=== PATIENT | female | born 1935 | race African-American/Black ===

== ENCOUNTER 2020-07-03 14:39 | Inpatient (IN) | payer OTHER, MEDICAID ==
[~2020-07-03] VITALS: Ht 162.6 cm; Wt 59.9 kg
[2020-07-03] MEDS ORDERED: SODIUM CHLORIDE 0.9% 1,000 ML IV ONE (15:19)
[2020-07-03] MEDS ORDERED: LORAZEPAM 2MG/ML CPJ IV ONE (15:30)
[2020-07-03 15:33] LABS: BASOPHILS % 0.5 % (0.0-2.0); HEMATOCRIT. 41.7 % (36.0-48.0); HEMOGLOBIN. 14.2 g/dL (12.0-16.0); LYMPHOCYTES % 15.2 % (20.0-50.0); MEAN CORPUSCULAR HEMOGLOBIN 32.1 pg (28.0-32.0); NEUTROPHILS % 79.3 % (40.0-76.0); PLATELET 201 x1000/uL (130-400); RED BLOOD CELL COUNT 4.44 mill/uL (4.2-5.4); RED CELL DISTRIBUTION WIDTH 12.7 % (11.6-14.6)
[2020-07-03 15:39] LABS: CHLORIDE 100 mEq/L (98-107)
[2020-07-03 15:44] LABS: ETHANOL BLOOD < 10 mg/dL
[2020-07-03 15:47] LABS: PARTIAL THROMBOPLASTIN TIME 24.6 sec (23.4-31.0); PROTHROMBIN TIME 10.8 sec (9.6-11.0)
[2020-07-03 16:17] LABS: CLARITY URINE CLEAR (CLEAR); COLOR URINE YELLOW (YELLOW); KETONES URINE 3+ (NEGATIVE); LEUKOCYTE ESTERASE URINE NEGATIVE (NEGATIVE); NITRITE URINE NEGATIVE (NEGATIVE); OCCULT BLOOD URINE 2+ (NEGATIVE); PROTEIN URINE TRACE (NEGATIVE); UROBILINOGEN URINE 0.2 E.U./dL (0.2-1.0)
[2020-07-03 16:45] LABS: *AMPHETAMINES SCREEN URINE NEGATIVE (NEGATIVE); *BARBITURATES SCREEN URINE NEGATIVE (NEGATIVE); *BENZODIAZEPINES SCREEN URINE NEGATIVE (NEGATIVE); *COCAINE SCREEN URINE NEGATIVE (NEGATIVE); METHADONE URINE SCREEN NEGATIVE (NEGATIVE); OPIATES URINE SCREEN NEGATIVE (NEGATIVE)
[2020-07-03 16:46] LABS: CANNABINOID URINE SCREEN NEGATIVE (NEGATIVE); PHENCYCLIDINE URINE SCREEN NEGATIVE (NEGATIVE)
[2020-07-03] MEDS ORDERED: CEFTRIAXONE 1 G PREMIX 50 ML IV ONE (18:15)
[2020-07-03 21:00] VITALS: BP 163/89
[2020-07-03 22:57] VITALS: BP 163/89
[2020-07-04] VITALS: BP 165/90
[2020-07-04] MEDS ORDERED: LORAZEPAM 2MG/ML CPJ IV PRN (00:15)
[2020-07-04] MEDS ORDERED: ZOLPIDEM TARTRATE 5MG TABLET PO PRN (00:15)
[2020-07-04] MEDS ORDERED: CLONIDINE 0.1MG TABLET PO PRN (00:15)
[2020-07-04] MEDS ORDERED: DIPHENHYDRAMINE 50MG/ML VIAL IV PRN (00:15)
[2020-07-04] MEDS ORDERED: ACETAMINOPHEN 325MG TABLET PO PRN ×2 (00:15)
[2020-07-04] MEDS ORDERED: MAGNESIUM/ALUMINUM HYDROXIDE/SIMETHICONE 30ML UDC PO PRN (00:15)
[2020-07-04] MEDS ORDERED: ONDANSETRON HCL 4MG/2ML INJ IV PRN (00:15)
[2020-07-04] MEDS ORDERED: METOPROLOL TARTRATE 50MG TABLET PO PRN (01:30)
[2020-07-04] MEDS: DILTIAZEM HCL 5MG/ML 5ML VIAL IV NR ×2 (01:49→04:37)
[2020-07-04 04:00] VITALS: BP 183/100
[2020-07-04] MEDS: SODIUM CHLORIDE 0.9% INJ 3ML FLUSH IVF SCH ×3 (06:00→21:07)
[2020-07-04 08:00] VITALS: BP 167/79
[2020-07-04] MEDS ORDERED: METOPROLOL TARTRATE 50MG TABLET PO SCH ×2 (09:00)
[2020-07-04 12:00] VITALS: BP 152/86
[2020-07-04 16:00] VITALS: BP 118/84
[2020-07-04] MEDS ORDERED: LORAZEPAM 1MG TABLET PO PRN (19:00)
[2020-07-04 20:00] VITALS: BP 130/78
[2020-07-04] MEDS: METOPROLOL TARTRATE 100MG TABLET PO SCH (21:06)
[2020-07-04] MEDS: DILTIAZEM HCL 60MG TABLET PO SCH (21:07)
[2020-07-04 21:14] LABS: BASOPHILS % 1.3 % (0.0-2.0); HEMATOCRIT. 41.5 % (36.0-48.0); HEMOGLOBIN. 13.9 g/dL (12.0-16.0); LYMPHOCYTES % 25.6 % (20.0-50.0); MEAN CORPUSCULAR HEMOGLOBIN 31.7 pg (28.0-32.0); MEAN CORPUSCULAR VOLUME 94.8 fL (81.0-99.0); MEAN PLATELET VOLUME 9.3 fl (7.4-10.4); MONOCYTES % 8.4 % (2.0-8.0); NEUTROPHILS % 63.7 % (40.0-76.0); PLATELET 206 x1000/uL (130-400); RED BLOOD CELL COUNT 4.37 mill/uL (4.2-5.4); RED CELL DISTRIBUTION WIDTH 12.7 % (11.6-14.6)
[2020-07-04 21:15] LABS: CHLORIDE 101 mEq/L (98-107)
[2020-07-05] VITALS (7 sets, daily range): BP systolic 100–134; BP diastolic 57–88
[2020-07-05] MEDS: DILTIAZEM HCL 60MG TABLET PO SCH (06:08)
[2020-07-05] MEDS: SODIUM CHLORIDE 0.9% INJ 3ML FLUSH IVF SCH ×3 (06:09→21:02)
[2020-07-05 06:59] LABS: PHOSPHORUS 3.7 mg/dL (2.5-4.9)
[2020-07-05] MEDS: METOPROLOL TARTRATE 100MG TABLET PO SCH ×2 (08:54→20:33)
[2020-07-05 11:27] LABS: VITAMIN B12 SERUM 406 pg/mL (211-911)
[2020-07-05] MEDS: DILTIAZEM HCL 30MG TABLET PO SCH ×2 (14:48→21:03)
[2020-07-06 04:30] VITALS: BP 135/76
[2020-07-06] MEDS: DILTIAZEM HCL 30MG TABLET PO SCH ×2 (05:25→14:15)
[2020-07-06] MEDS: SODIUM CHLORIDE 0.9% INJ 3ML FLUSH IVF SCH ×2 (05:25→14:15)
[2020-07-06 08:00] VITALS: BP 129/84
[2020-07-06] MEDS: METOPROLOL TARTRATE 100MG TABLET PO SCH (08:48)
[2020-07-06 11:51] VITALS: BP 132/82
[2020-07-06 15:17] VITALS: BP 132/82
[2020-07-06 15:21] VITALS: BP 132/82
[2020-07-06] MEDS ORDERED: MEMANTINE HCL 5MG TABLET PO SCH (21:00)
== END 2020-07-06 17:30 | DRG 885 ==
LOC: ER 14:39 → EDBEDREQ 16:53 → EDBEDREQTM 16:53 → 7WST 18:10 → EDBEDREQ 18:56 → EDBEDREQTM 18:56 → ENRESERV 19:18 → 8WST 07-04 22:34
PROVIDERS: ADMIT Internal Medicine; ATTEND Internal Medicine
DX: F23 Brief psychotic disorder (principal); I47.1 Supraventricular tachycardia; I10 Essential (primary) hypertension; Z79.899 Other long term (current) drug therapy; Z86.19 Personal history of other infectious and parasitic diseases
CPT/HCPCS: 36415; 70551; 71045; 80053; 80305; 80320; 81003; 82607; 83735; 83880; 84100; 84439; 84443; 84484; 85025; 87426; 93005; 93306; 99285; J0696; J2060; J3490; J7030; G0480

== ENCOUNTER 2021-07-30 22:13 | Inpatient (IN) | payer MEDICARE, MEDICAID ==
[~2021-07-30] VITALS: Ht 162.6 cm; Wt 57.6 kg
[~2021-07-30 22:13] MED LIST: DILT120T13 MT; LOPHC2 MT
[2021-07-31] MEDS ORDERED: HALOPERIDOL 5MG TABLET PO ONE (00:30)
[2021-07-31 00:44] LABS: BASOPHILS % 0.4 % (0.0-2.0); EOSINOPHILS % 0.3 % (0.0-5.0); HEMATOCRIT. 40.4 % (36.0-48.0); HEMOGLOBIN. 13.8 g/dL (12.0-16.0); LYMPHOCYTES % 39.8 % (20.0-50.0); MEAN CORPUSCULAR HEMOGLOBIN 31.8 pg (28.0-32.0); MEAN CORPUSCULAR VOLUME 92.9 fL (81.0-99.0); MEAN PLATELET VOLUME 8.7 fl (7.4-10.4); MONOCYTES % 6.9 % (2.0-8.0); NEUTROPHILS % 52.6 % (40.0-76.0); PLATELET 236 x1000/uL (130-400); RED BLOOD CELL COUNT 4.35 mill/uL (4.2-5.4); RED CELL DISTRIBUTION WIDTH 12.4 % (11.6-14.6)
[2021-07-31 00:47] LABS: CHLORIDE 92 mEq/L (98-107)
[2021-07-31 00:51] LABS: ETHANOL BLOOD < 10 mg/dL
[2021-07-31 01:03] LABS: CLARITY URINE CLEAR (CLEAR); COLOR URINE YELLOW (YELLOW); KETONES URINE NEGATIVE (NEGATIVE); LEUKOCYTE ESTERASE URINE 2+ (NEGATIVE); NITRITE URINE NEGATIVE (NEGATIVE); OCCULT BLOOD URINE 1+ (NEGATIVE); PH URINE 6.5 (4.5-8.0); PROTEIN URINE NEGATIVE (NEGATIVE); SPECIFIC GRAVITY URINE 1.004 (1.005-1.030); UROBILINOGEN URINE 0.2 E.U./dL (0.2-1.0)
[2021-07-31 01:22] LABS: *AMPHETAMINES SCREEN URINE NEGATIVE (NEGATIVE); *BARBITURATES SCREEN URINE NEGATIVE (NEGATIVE); *BENZODIAZEPINES SCREEN URINE NEGATIVE (NEGATIVE); *COCAINE SCREEN URINE NEGATIVE (NEGATIVE); CANNABINOID URINE SCREEN NEGATIVE (NEGATIVE); METHADONE URINE SCREEN NEGATIVE (NEGATIVE); OPIATES URINE SCREEN NEGATIVE (NEGATIVE); PHENCYCLIDINE URINE SCREEN NEGATIVE (NEGATIVE)
[2021-07-31] MEDS ORDERED: NITROFURANTOIN 100MG M/M CAPSULE PO ONE (15:45)
[2021-07-31] MEDS ORDERED: KCL 20MEQ/100ML PREMIX 100 ML IV ONE (15:45)
[2021-07-31] MEDS ORDERED: CLONIDINE 0.1MG TABLET PO PRN (17:15)
[2021-07-31] MEDS ORDERED: ACETAMINOPHEN 325MG TABLET PO PRN ×2 (17:15)
[2021-07-31] MEDS ORDERED: ONDANSETRON HCL 4MG/2ML INJ IV PRN (17:15)
[2021-07-31] MEDS ORDERED: LORAZEPAM 0.5MG TABLET PO PRN (17:15)
[2021-07-31] MEDS ORDERED: DOCUSATE SODIUM 100MG CAPSULE PO PRN (17:15)
[2021-07-31] MEDS ORDERED: IPRATROPIUM/ALBUTEROL 0.5-3(2.5)MG/3ML NEB HHN PRN (17:15)
[2021-07-31] MEDS ORDERED: HYDROCODONE/ACETAMINOPHEN 5/325MG TABLET PO PRN (17:15)
[2021-07-31 20:51] LABS: FOLIC ACID (FOLATE) SERUM >20 ng/mL ng/mL (>5.38)
[2021-07-31 21:01] LABS: VITAMIN B12 SERUM 371 pg/mL (211-911)
[2021-07-31] MEDS ORDERED: HYDR12.54 PO (22:18)
[2021-07-31] MEDS ORDERED: METO-385 PO (22:19)
[2021-07-31 22:45] VITALS: BP 160/86
[2021-08-01] VITALS: BP 132/69
[2021-08-01 04:00] VITALS: BP 149/67
[2021-08-01 08:00] VITALS: BP 152/78
[2021-08-01 12:00] VITALS: BP 175/90
[2021-08-01 16:00] VITALS: BP 166/88
[2021-08-01] MEDS: DILTIAZEM HCL 120MG CAPSULE CD 24HR PO SCH (17:46)
[2021-08-01] MEDS: HYDROCHLOROTHIAZIDE 25MG TABLET PO SCH (17:47)
[2021-08-01 20:00] VITALS: BP 167/89
[2021-08-01] MEDS: METOPROLOL TARTRATE 50MG TABLET PO SCH (21:27)
[2021-08-02] VITALS: BP 147/87
[2021-08-02 00:23] LABS: T4 FREE 1.27 ng/dL (0.76-1.46)
[2021-08-02 04:00] VITALS: BP 142/83
[2021-08-02 08:00] VITALS: BP 132/65
[2021-08-02] MEDS: HYDROCHLOROTHIAZIDE 25MG TABLET PO SCH (10:27)
[2021-08-02] MEDS: METOPROLOL TARTRATE 50MG TABLET PO SCH ×2 (10:28→21:12)
[2021-08-02] MEDS: DILTIAZEM HCL 120MG CAPSULE CD 24HR PO SCH (10:28)
[2021-08-02 12:42] VITALS: BP 122/73
[2021-08-02 16:15] VITALS: BP 107/60
[2021-08-02 20:00] VITALS: BP 178/96
[2021-08-03] VITALS: BP 122/76
[2021-08-03 04:00] VITALS: BP 136/79
[2021-08-03 06:06] LABS: BASOPHILS % 0.7 % (0.0-2.0); EOSINOPHILS % 1.5 % (0.0-5.0); HEMATOCRIT. 42.2 % (36.0-48.0); HEMOGLOBIN. 14.1 g/dL (12.0-16.0); LYMPHOCYTES % 51.4 % (20.0-50.0); MEAN CORPUSCULAR HEMOGLOBIN 31.5 pg (28.0-32.0); MEAN CORPUSCULAR VOLUME 94.4 fL (81.0-99.0); MEAN PLATELET VOLUME 8.8 fl (7.4-10.4); MONOCYTES % 7.3 % (2.0-8.0); NEUTROPHILS % 39.1 % (40.0-76.0); PLATELET 215 x1000/uL (130-400); RED BLOOD CELL COUNT 4.47 mill/uL (4.2-5.4); RED CELL DISTRIBUTION WIDTH 12.3 % (11.6-14.6)
[2021-08-03 06:29] LABS: CHLORIDE 94 mEq/L (98-107)
[2021-08-03 08:00] VITALS: BP 138/72
[2021-08-03] MEDS: DILTIAZEM HCL 120MG CAPSULE CD 24HR PO SCH (08:44)
[2021-08-03] MEDS: METOPROLOL TARTRATE 50MG TABLET PO SCH (08:45)
[2021-08-03 12:00] VITALS: BP 159/89
[2021-08-03] MEDS: HYDROCHLOROTHIAZIDE 25MG TABLET PO SCH (13:52)
[2021-08-03 15:07] VITALS: BP 159/89
== END 2021-08-03 16:20 | disposition home or self-care (01) | DRG 56 ==
LOC: ER 22:13 → 6WST 07-31 09:34 → ENRESERV 07-31 17:51
PROVIDERS: ADMIT Internal Medicine; ATTEND Internal Medicine
DX: G30.9 Alzheimer's disease, unspecified (principal); G92.8 Other toxic encephalopathy; I10 Essential (primary) hypertension; J44.9 Chronic obstructive pulmonary disease, unspecified; F02.80 Dementia in other diseases classified elsewhere, unspecified severity, without behavioral disturbance, psychotic disturbance, mood disturbance, and anxiety; E78.00 Pure hypercholesterolemia, unspecified; E78.5 Hyperlipidemia, unspecified; Z86.74 Personal history of sudden cardiac arrest; Z86.73 Personal history of transient ischemic attack (TIA), and cerebral infarction without residual deficits
CPT/HCPCS: 36415; 70551; 71045; 80048; 80053; 80305; 80307; 80320; 80329; 81003; 82140; 82607; 82746; 83036; 84439; 84443; 84481; 84484; 85025; 93005; 99285; C1893; J1630; J3480; J7040; G0480

== ENCOUNTER 2021-12-17 13:36 | Emergency (ER) | payer MEDICARE, MEDICAID ==
[~2021-12-17] VITALS: Ht 167.6 cm; Wt 60.0 kg
[~2021-12-17 13:36] MED LIST changes: +HYDR12.54 PO; -LOPHC2 MT; +METO-385 PO
[2021-12-17 14:04] VITALS: BP 160/90
[2021-12-23] MEDS ORDERED: KEPP500 PO (11:42)
[2021-12-23] MEDS ORDERED: HYDR-3735 PO (11:42)
== END 2021-12-17 23:14 | disposition left against medical advice (07) ==
LOC: ER 13:36
DX: Z53.21 Procedure and treatment not carried out due to patient leaving prior to being seen by health care provider (principal); I49.9 Cardiac arrhythmia, unspecified
CPT/HCPCS: 93005

== ENCOUNTER 2021-12-19 17:09 | Inpatient (IN) | payer MEDICARE, MEDICAID ==
[~2021-12-19] VITALS: Ht 165.1 cm; Wt 59.0 kg
[2021-12-19] MEDS ORDERED: QUETIAPINE FUMARATE 25MG TABLET PO NR (18:15)
[2021-12-19] MEDS ORDERED: HALOPERIDOL LACTATE 5MG/ML VIAL IM ONE ×2 (18:30→19:30)
[2021-12-19 19:04] LABS: CLARITY URINE CLEAR (CLEAR); COLOR URINE YELLOW (YELLOW); KETONES URINE 1+ (NEGATIVE); LEUKOCYTE ESTERASE URINE NEGATIVE (NEGATIVE); NITRITE URINE NEGATIVE (NEGATIVE); OCCULT BLOOD URINE 1+ (NEGATIVE); PROTEIN URINE TRACE (NEGATIVE); SPECIFIC GRAVITY URINE 1.008 (1.005-1.030); UROBILINOGEN URINE 0.2 E.U./dL (0.2-1.0)
[2021-12-19 19:42] LABS: *AMPHETAMINES SCREEN URINE NEGATIVE (NEGATIVE); *BARBITURATES SCREEN URINE NEGATIVE (NEGATIVE); *BENZODIAZEPINES SCREEN URINE NEGATIVE (NEGATIVE)
[2021-12-19 19:43] LABS: *COCAINE SCREEN URINE NEGATIVE (NEGATIVE); CANNABINOID URINE SCREEN NEGATIVE (NEGATIVE); METHADONE URINE SCREEN NEGATIVE (NEGATIVE); OPIATES URINE SCREEN NEGATIVE (NEGATIVE)
[2021-12-19 19:44] LABS: BASOPHILS % 0.2 % (0.0-2.0); EOSINOPHILS % 0.1 % (0.0-5.0); HEMATOCRIT. 35.4 % (36.0-48.0); HEMOGLOBIN. 12.2 g/dL (12.0-16.0); LYMPHOCYTES % 21.1 % (20.0-50.0); MEAN CORPUSCULAR HEMOGLOBIN 31.4 pg (28.0-32.0); MEAN CORPUSCULAR VOLUME 90.6 fL (81.0-99.0); MEAN PLATELET VOLUME 8.5 fl (7.4-10.4); MONOCYTES % 6.8 % (2.0-8.0); NEUTROPHILS % 71.8 % (40.0-76.0); PLATELET 220 x1000/uL (130-400); RED CELL DISTRIBUTION WIDTH 12.6 % (11.6-14.6)
[2021-12-19 19:44] LABS: PHENCYCLIDINE URINE SCREEN NEGATIVE (NEGATIVE)
[2021-12-19] MEDS ORDERED: LEVETIRACETAM 500MG PREMIX 100 ML IV ONE ×2 (19:45)
[2021-12-19 19:54] LABS: CHLORIDE 82 mEq/L (98-107)
[2021-12-19] MEDS ORDERED: SODIUM CHLORIDE 0.9% 500 ML IV NR (20:00)
[2021-12-19 20:02] LABS: ETHANOL BLOOD < 10 mg/dL
[2021-12-19] MEDS ORDERED: HYDROCODONE/ACETAMINOPHEN 5/325MG TABLET PO PRN (23:45)
[2021-12-19] MEDS ORDERED: MAGNESIUM/ALUMINUM HYDROXIDE/SIMETHICONE 30ML UDC PO PRN (23:45)
[2021-12-19] MEDS ORDERED: ACETAMINOPHEN 325MG TABLET PO PRN ×2 (23:45)
[2021-12-20] VITALS (11 sets, daily range): BP systolic 151–181; BP diastolic 79–97
[2021-12-20 05:27] LABS: BASOPHILS % 0.1 % (0.0-2.0); EOSINOPHILS % 0.2 % (0.0-5.0); HEMATOCRIT. 34.5 % (36.0-48.0); HEMOGLOBIN. 11.9 g/dL (12.0-16.0); LYMPHOCYTES % 22.3 % (20.0-50.0); MEAN CORPUSCULAR HEMOGLOBIN 31.4 pg (28.0-32.0); MEAN CORPUSCULAR VOLUME 91.3 fL (81.0-99.0); MEAN PLATELET VOLUME 8.3 fl (7.4-10.4); MONOCYTES % 6.9 % (2.0-8.0); NEUTROPHILS % 70.5 % (40.0-76.0); PLATELET 196 x1000/uL (130-400); RED BLOOD CELL COUNT 3.77 mill/uL (4.2-5.4); RED CELL DISTRIBUTION WIDTH 12.6 % (11.6-14.6)
[2021-12-20 05:42] LABS: CHLORIDE 86 mEq/L (98-107)
[2021-12-20 05:46] LABS: PHOSPHORUS 2.7 mg/dL (2.5-4.9)
[2021-12-20 06:33] LABS: FOLIC ACID (FOLATE) SERUM >20 ng/mL ng/mL (>5.38)
[2021-12-20 06:42] LABS: CREATINE KINASE 1574 IU/L (26-192)
[2021-12-20 06:45] LABS: VITAMIN B12 SERUM 363 pg/mL (211-911)
[2021-12-20] MEDS: ENOXAPARIN 40MG/0.4ML SYR SUBCUT SCH (09:23)
[2021-12-20] MEDS: SODIUM CHLORIDE 0.9% 1,000 ML IV SCH (13:15)
[2021-12-20] MEDS ORDERED: POTASSIUM CHLORIDE 20MEQ/PACKET PO NR (13:15)
[2021-12-20] MEDS: CLONIDINE 0.1MG TABLET PO PRN (14:19)
[2021-12-20] MEDS ORDERED: POTASSIUM CHLORIDE 20MEQ TABLET SR PO NR (16:45)
[2021-12-20] MEDS ORDERED: NALOXONE HCL 0.4MG/ML VIAL IV PRN (23:00)
[2021-12-21] VITALS (12 sets, daily range): BP systolic 98–176; BP diastolic 49–96
[2021-12-21] MEDS: CLONIDINE 0.1MG TABLET PO PRN ×2 (01:27→22:41)
[2021-12-21] MEDS: SODIUM CHLORIDE 0.9% 1,000 ML IV SCH ×3 (01:28→22:43)
[2021-12-21] MEDS: ENOXAPARIN 40MG/0.4ML SYR SUBCUT SCH (09:48)
[2021-12-21] MEDS: LEVETIRACETAM 500MG TABLET PO SCH ×2 (09:48→22:10)
[2021-12-21 10:53] LABS: HEMATOCRIT. 38.9 % (36.0-48.0); HEMOGLOBIN. 12.9 g/dL (12.0-16.0); MEAN CORPUSCULAR HEMOGLOBIN 30.7 pg (28.0-32.0); MEAN PLATELET VOLUME 8.8 fl (7.4-10.4); PLATELET 242 x1000/uL (130-400); RED BLOOD CELL COUNT 4.19 mill/uL (4.2-5.4); RED CELL DISTRIBUTION WIDTH 12.7 % (11.6-14.6)
[2021-12-21 10:54] LABS: BASOPHILS % 0.3 % (0.0-2.0); EOSINOPHILS % 0.2 % (0.0-5.0); LYMPHOCYTES % 17.9 % (20.0-50.0); MONOCYTES % 6.6 % (2.0-8.0)
[2021-12-21 11:01] LABS: CHLORIDE 97 mEq/L (98-107)
[2021-12-21] MEDS ORDERED: POTASSIUM CHLORIDE 20MEQ TABLET SR PO SCH (11:15)
[2021-12-22] VITALS (10 sets, daily range): BP systolic 158–187; BP diastolic 40–115
[2021-12-22] MEDS: SODIUM CHLORIDE 0.9% 1,000 ML IV SCH ×2 (05:43→15:21)
[2021-12-22] MEDS: ONDANSETRON HCL 4MG/2ML INJ IV PRN (05:44)
[2021-12-22] MEDS: CLONIDINE 0.1MG TABLET PO PRN ×2 (05:44→17:39)
[2021-12-22] MEDS: ENOXAPARIN 40MG/0.4ML SYR SUBCUT SCH (08:43)
[2021-12-22] MEDS: LEVETIRACETAM 500MG TABLET PO SCH ×2 (08:43→20:37)
[2021-12-22 11:17] LABS: BASOPHILS % 0.4 % (0.0-2.0); EOSINOPHILS % 0.6 % (0.0-5.0); HEMATOCRIT. 39.9 % (36.0-48.0); HEMOGLOBIN. 13.5 g/dL (12.0-16.0); MEAN CORPUSCULAR HEMOGLOBIN 31.2 pg (28.0-32.0); MEAN CORPUSCULAR VOLUME 92.3 fL (81.0-99.0); MEAN PLATELET VOLUME 9.4 fl (7.4-10.4); MONOCYTES % 6.2 % (2.0-8.0); NEUTROPHILS % 68.8 % (40.0-76.0); PLATELET 244 x1000/uL (130-400); RED BLOOD CELL COUNT 4.33 mill/uL (4.2-5.4); RED CELL DISTRIBUTION WIDTH 12.5 % (11.6-14.6)
[2021-12-22 11:32] LABS: CHLORIDE 99 mEq/L (98-107)
[2021-12-22] MEDS ORDERED: POTASSIUM CHLORIDE 20MEQ TABLET SR PO NR (15:00)
[2021-12-22] MEDS ORDERED: HYDRALAZINE 20MG/ML VIAL IV NR (18:30)
[2021-12-22] MEDS ORDERED: POTASSIUM-SODIUM PHOSPHATE POWDER PACKET PO NR (20:00)
[2021-12-22] MEDS ORDERED: HYDROCHLOROTHIAZIDE 12.5MG CAPSULE PO SCH (20:00)
[2021-12-22] MEDS ORDERED: METOPROLOL SUCCINATE 50MG ER TABLET PO SCH (20:00)
[2021-12-22] MEDS: HYDROXYZINE 25MG TABLET PO PRN (20:38)
[2021-12-22] MEDS: METOPROLOL TARTRATE 50MG TABLET PO SCH (20:38)
[2021-12-23] VITALS: BP 176/118
[2021-12-23] MEDS: ONDANSETRON HCL 4MG/2ML INJ IV PRN (00:20)
[2021-12-23] MEDS: HYDRALAZINE 20MG/ML VIAL IV PRN ×2 (00:21→05:55)
[2021-12-23 04:00] VITALS: BP 117/57
[2021-12-23] MEDS: HYDROXYZINE 25MG TABLET PO PRN (05:56)
[2021-12-23 06:53] LABS: BASOPHILS % 0.7 % (0.0-2.0); EOSINOPHILS % 1.1 % (0.0-5.0); HEMATOCRIT. 35.7 % (36.0-48.0); HEMOGLOBIN. 12.3 g/dL (12.0-16.0); LYMPHOCYTES % 36.3 % (20.0-50.0); MEAN CORPUSCULAR HEMOGLOBIN 31.7 pg (28.0-32.0); MEAN CORPUSCULAR VOLUME 92.2 fL (81.0-99.0); MEAN PLATELET VOLUME 8.9 fl (7.4-10.4); MONOCYTES % 9.8 % (2.0-8.0); NEUTROPHILS % 52.1 % (40.0-76.0); PLATELET 231 x1000/uL (130-400); RED BLOOD CELL COUNT 3.87 mill/uL (4.2-5.4); RED CELL DISTRIBUTION WIDTH 12.9 % (11.6-14.6)
[2021-12-23 07:14] LABS: CHLORIDE 104 mEq/L (98-107)
[2021-12-23 07:30] LABS: PHOSPHORUS 2.8 mg/dL (2.5-4.9)
[2021-12-23 08:00] VITALS: BP 115/93
[2021-12-23] MEDS: LEVETIRACETAM 500MG TABLET PO SCH (08:37)
[2021-12-23] MEDS: METOPROLOL TARTRATE 50MG TABLET PO SCH (08:45)
[2021-12-23] MEDS: ENOXAPARIN 40MG/0.4ML SYR SUBCUT SCH (08:46)
[2021-12-23] MEDS ORDERED: HYDR-3735 PO (11:42)
[2021-12-23] MEDS ORDERED: KEPP500 PO (11:42)
[2021-12-23 12:00] VITALS: BP 143/74
[2021-12-23 12:32] VITALS: BP 143/74
== END 2021-12-23 18:30 | disposition home or self-care (01) | DRG 100 ==
LOC: ER 17:09 → MICUSO 22:52 → EDBEDREQ 22:57 → EDBEDREQTM 22:57 → SUPCPDRO 23:07 → 5EST 12-20 13:48
PROVIDERS: ADMIT Internal Medicine; ATTEND Internal Medicine
PROC: 4A10X4Z Monitoring of Central Nervous Electrical Activity, External Approach (ICD-10-PCS; principal; 2021-12-22)
DX: G40.909 Epilepsy, unspecified, not intractable, without status epilepticus (principal); G93.41 Metabolic encephalopathy; E87.1 Hypo-osmolality and hyponatremia; E11.9 Type 2 diabetes mellitus without complications; Z20.822 Contact with and (suspected) exposure to COVID-19; F03.90 Unspecified dementia, unspecified severity, without behavioral disturbance, psychotic disturbance, mood disturbance, and anxiety; I10 Essential (primary) hypertension; E87.6 Hypokalemia; Z79.899 Other long term (current) drug therapy
CPT/HCPCS: 36415; 71045; 80048; 80053; 80305; 80320; 81003; 82140; 82550; 82607; 82746; 83735; 84100; 84443; 84484; 85025; 87426; 93005; 95816; 97162; 97166; 99285; C1893; J0360; J1630; J1650; J1953; J2405; J7030; G0480

== ENCOUNTER 2021-12-28 11:57 | Inpatient (IN) | payer MEDICARE, MEDICAID ==
[~2021-12-28] VITALS: Ht 162.6 cm; Wt 59.9 kg
[~2021-12-28 11:57] MED LIST changes: +HYDR-3735 PO; +KEPP500 PO
[2021-12-28] MEDS ORDERED: SODIUM CHLORIDE 0.9% 1000ML BAG (SEPSIS BOLUS) IV ONE (13:00)
[2021-12-28 13:13] LABS: BASOPHILS % 0.5 % (0.0-2.0); EOSINOPHILS % 0.3 % (0.0-5.0); HEMATOCRIT. 35.6 % (36.0-48.0); HEMOGLOBIN. 12.1 g/dL (12.0-16.0); LYMPHOCYTES % 24.2 % (20.0-50.0); MEAN CORPUSCULAR HEMOGLOBIN 31.7 pg (28.0-32.0); MEAN PLATELET VOLUME 7.6 fl (7.4-10.4); MONOCYTES % 9.1 % (2.0-8.0); NEUTROPHILS % 65.9 % (40.0-76.0); PLATELET 233 x1000/uL (130-400); RED BLOOD CELL COUNT 3.82 mill/uL (4.2-5.4); RED CELL DISTRIBUTION WIDTH 12.7 % (11.6-14.6)
[2021-12-28 13:20] LABS: CHLORIDE 101 mEq/L (98-107)
[2021-12-28 13:25] LABS: ETHANOL BLOOD < 10 mg/dL
[2021-12-28 14:25] LABS: CLARITY URINE CLOUDY (CLEAR); COLOR URINE YELLOW (YELLOW); KETONES URINE NEGATIVE (NEGATIVE); LEUKOCYTE ESTERASE URINE 3+ (NEGATIVE); NITRITE URINE POSITIVE (NEGATIVE); OCCULT BLOOD URINE 2+ (NEGATIVE); PROTEIN URINE TRACE (NEGATIVE); SPECIFIC GRAVITY URINE 1.005 (1.005-1.030); UROBILINOGEN URINE 0.2 E.U./dL (0.2-1.0)
[2021-12-28 14:30] LABS: OPIATES URINE SCREEN NEGATIVE (NEGATIVE)
[2021-12-28 14:31] LABS: *AMPHETAMINES SCREEN URINE NEGATIVE (NEGATIVE); *BARBITURATES SCREEN URINE NEGATIVE (NEGATIVE); *BENZODIAZEPINES SCREEN URINE NEGATIVE (NEGATIVE); CANNABINOID URINE SCREEN NEGATIVE (NEGATIVE); METHADONE URINE SCREEN NEGATIVE (NEGATIVE); PHENCYCLIDINE URINE SCREEN NEGATIVE (NEGATIVE)
[2021-12-28 14:32] LABS: *COCAINE SCREEN URINE NEGATIVE (NEGATIVE)
[2021-12-28] MEDS ORDERED: CEFTRIAXONE 1 G PREMIX 50 ML IV NR (15:00)
[2021-12-28] MEDS ORDERED: GUAIFENESIN 200MG/10ML SUGAR FREE UDC PO PRN (19:00)
[2021-12-28] MEDS ORDERED: POTASSIUM CHLORIDE 20MEQ TABLET SR PO NR (19:00)
[2021-12-28] MEDS ORDERED: ACETAMINOPHEN 325MG TABLET PO PRN (19:00)
[2021-12-28] MEDS ORDERED: ENOXAPARIN 40MG/0.4ML SYR SUBCUT SCH (19:00)
[2021-12-28] MEDS ORDERED: ONDANSETRON HCL 4MG/2ML INJ IV PRN (19:00)
[2021-12-28] MEDS ORDERED: DOCUSATE SODIUM 100MG CAPSULE PO PRN (19:00)
[2021-12-28] MEDS: CLONIDINE 0.1MG TABLET PO PRN (19:56)
[2021-12-28] MEDS: ENOXAPARIN 30MG/0.3ML SYR SUBCUT SCH (19:56)
[2021-12-28] MEDS ORDERED: HYDRALAZINE 20MG/ML VIAL IV PRN (21:15)
[2021-12-28 21:55] VITALS: BP 143/76
[2021-12-29] VITALS: BP 141/89
[2021-12-29 04:00] VITALS: BP 172/96
[2021-12-29] MEDS: LORAZEPAM 2MG/ML CPJ IV PRN (04:30)
[2021-12-29] MEDS: CLONIDINE 0.1MG TABLET PO PRN (04:52)
[2021-12-29 08:00] VITALS: BP 143/78
[2021-12-29] MEDS ORDERED: CEFTRIAXONE 1 G PREMIX 50 ML IV SCH (09:00)
[2021-12-29] MEDS: DILTIAZEM HCL 120MG CAPSULE CD 24HR PO SCH (11:00)
[2021-12-29] MEDS: METOPROLOL SUCCINATE 50MG ER TABLET PO SCH (11:00)
[2021-12-29 12:00] VITALS: BP 142/116
[2021-12-29] MEDS: CEFTRIAXONE 1,000 MG in DEXTROSE 5% WATER 50 ML IV SCH (12:35)
[2021-12-29 16:00] VITALS: BP 168/90
[2021-12-29] MEDS ORDERED: LEVETIRACETAM 500 MG in SODIUM CHLORIDE 0.9% 100 ML IV SCH (16:00)
[2021-12-29 20:00] VITALS: BP 144/74
[2021-12-29] MEDS: ENOXAPARIN 30MG/0.3ML SYR SUBCUT SCH (20:01)
[2021-12-29] MEDS: LEVETIRACETAM 500MG PREMIX 100 ML IV SCH (21:27)
[2021-12-30] VITALS: BP 147/82
[2021-12-30 04:00] VITALS: BP 148/85
[2021-12-30 07:22] LABS: BASOPHILS % 0.2 % (0.0-2.0); EOSINOPHILS % 0.4 % (0.0-5.0); HEMATOCRIT. 33.5 % (36.0-48.0); HEMOGLOBIN. 11.4 g/dL (12.0-16.0); LYMPHOCYTES % 13.9 % (20.0-50.0); MEAN CORPUSCULAR HEMOGLOBIN 31.7 pg (28.0-32.0); MEAN CORPUSCULAR VOLUME 93.2 fL (81.0-99.0); MONOCYTES % 5.9 % (2.0-8.0); NEUTROPHILS % 79.6 % (40.0-76.0); PLATELET 241 x1000/uL (130-400); RED CELL DISTRIBUTION WIDTH 12.8 % (11.6-14.6)
[2021-12-30 07:54] LABS: CHLORIDE 104 mEq/L (98-107)
[2021-12-30 08:00] VITALS: BP 167/78
[2021-12-30] MEDS: DILTIAZEM HCL 120MG CAPSULE CD 24HR PO SCH (08:44)
[2021-12-30] MEDS: METOPROLOL SUCCINATE 50MG ER TABLET PO SCH (08:48)
[2021-12-30] MEDS: CEFTRIAXONE 1,000 MG in DEXTROSE 5% WATER 50 ML IV SCH (11:25)
[2021-12-30 12:00] VITALS: BP 128/73
[2021-12-30] MEDS: LEVETIRACETAM 500MG PREMIX 100 ML IV SCH ×2 (12:26→22:30)
[2021-12-30] MEDS ORDERED: METOPROLOL TARTRATE 5MG/5ML VIAL IV PRN (13:45)
[2021-12-30] MEDS ORDERED: METOPROLOL SUCCINATE 50MG ER TABLET PO NR (14:30)
[2021-12-30 16:00] VITALS: BP 147/97
[2021-12-30] MEDS: ENOXAPARIN 30MG/0.3ML SYR SUBCUT SCH (19:00)
[2021-12-30] MEDS ORDERED: CITALOPRAM HYDROBROMIDE 10MG TABLET PO SCH (19:15)
[2021-12-30 20:00] VITALS: BP 141/94
[2021-12-31] VITALS: BP 129/70
[2021-12-31 04:00] VITALS: BP 141/81
[2021-12-31 08:00] VITALS: BP 148/84
[2021-12-31] MEDS: LEVETIRACETAM 500MG PREMIX 100 ML IV SCH (09:00)
[2021-12-31] MEDS: METOPROLOL SUCCINATE 50MG ER TABLET PO SCH (09:00)
[2021-12-31] MEDS: MEMANTINE HCL 5MG TABLET PO SCH (09:01)
[2021-12-31] MEDS: LAMOTRIGINE 25MG TABLET PO SCH (09:02)
[2021-12-31] MEDS: DILTIAZEM HCL 120MG CAPSULE CD 24HR PO SCH (09:02)
[2021-12-31] MEDS: CEFTRIAXONE 1,000 MG in DEXTROSE 5% WATER 50 ML IV SCH (09:04)
[2021-12-31] MEDS: RISPERIDONE 0.25MG TABLET PO SCH (10:00)
[2021-12-31 12:00] VITALS: BP 132/81
[2021-12-31] MEDS ORDERED: KEPP500 MT (13:08)
[2021-12-31] MEDS ORDERED: MIRT-89 PO (13:08)
[2021-12-31] MEDS ORDERED: LAM25 PO (13:08)
[2021-12-31] MEDS ORDERED: CEPH500T MT (13:08)
[2021-12-31] MEDS ORDERED: MEMA5TAB7 PO (13:08)
[2021-12-31 15:43] VITALS: BP 123/78
[2021-12-31] MEDS: ENOXAPARIN 30MG/0.3ML SYR SUBCUT SCH (18:41)
[2021-12-31] MEDS ORDERED: MIRTAZAPINE 15MG TABLET PO SCH (21:00)
[2022-01-01] MEDS: LORAZEPAM 2MG/ML CPJ IV PRN (00:39)
[2022-01-01] MEDS: LEVETIRACETAM 500MG PREMIX 100 ML IV SCH ×2 (00:40→08:26)
[2022-01-01 08:00] VITALS: BP 144/75
[2022-01-01] MEDS: LAMOTRIGINE 25MG TABLET PO SCH (08:24)
[2022-01-01] MEDS: RISPERIDONE 0.25MG TABLET PO SCH ×2 (08:24→20:29)
[2022-01-01] MEDS: MEMANTINE HCL 5MG TABLET PO SCH (08:24)
[2022-01-01] MEDS: DILTIAZEM HCL 120MG CAPSULE CD 24HR PO SCH (08:25)
[2022-01-01] MEDS: METOPROLOL SUCCINATE 50MG ER TABLET PO SCH (08:26)
[2022-01-01 12:00] VITALS: BP 120/59
[2022-01-01] MEDS: CEPHALEXIN 250MG CAPSULE PO SCH ×3 (12:00→17:26)
[2022-01-01] MEDS ORDERED: HYDRALAZINE HCL 10MG TABLET PO PRN (12:45)
[2022-01-01] MEDS ORDERED: LORAZEPAM 0.5MG TABLET PO PRN (12:45)
[2022-01-01] MEDS ORDERED: CLONIDINE 0.1MG TABLET PO PRN (13:00)
[2022-01-01] MEDS ORDERED: LORAZEPAM 1MG TABLET PO NR (15:30)
[2022-01-01 16:00] VITALS: BP 124/58
[2022-01-01] MEDS: ENOXAPARIN 30MG/0.3ML SYR SUBCUT SCH (18:30)
== END 2022-01-01 20:58 | DRG 689 ==
LOC: EDBEDREQTM 14:29 → EDBEDREQSVC 14:29 → EDBEDREQ 14:29 → ER 15:12 → 8WST 17:49 → EDBEDREQ 17:52 → EDBEDREQTM 17:52 → ENRESERV 20:39
PROVIDERS: ADMIT Internal Medicine; ATTEND Internal Medicine
DX: N39.0 Urinary tract infection, site not specified (principal); G93.41 Metabolic encephalopathy; G40.909 Epilepsy, unspecified, not intractable, without status epilepticus; I10 Essential (primary) hypertension; E87.6 Hypokalemia; R62.7 Adult failure to thrive; R00.0 Tachycardia, unspecified; F03.90 Unspecified dementia, unspecified severity, without behavioral disturbance, psychotic disturbance, mood disturbance, and anxiety; Z20.822 Contact with and (suspected) exposure to COVID-19; G47.00 Insomnia, unspecified; F32.9 Major depressive disorder, single episode, unspecified; Z91.19 Patient's noncompliance with other medical treatment and regimen; I25.2 Old myocardial infarction; Z91.013 Allergy to seafood; Z91.018 Allergy to other foods; Z79.899 Other long term (current) drug therapy; Z68.22 Body mass index [BMI] 22.0-22.9, adult
CPT/HCPCS: 36415; 71045; 80048; 80053; 80305; 80320; 81003; 82962; 83605; 84145; 84443; 84484; 85025; 87077; 87186; 87426; 93005; 97161; 97165; 99291; C1893; J0360; J0696; J1650; J1953; J2060; J7030; J7040; J7060; G0480